=== PATIENT | female | born 1935 | race Caucasian/White ===

== ENCOUNTER 2020-12-10 17:48 | Inpatient (IN) | payer MEDICARE, OTHER ==
[~2020-12-10] VITALS: Ht 144.8 cm; Wt 48.5 kg
[2020-12-10 18:23] LABS: MEAN CORPUSCULAR HEMOGLOBIN 30.9 uug (24.7-32.8); MEAN CORPUSCULAR VOLUME 89.8 fL (75.5-95.3); PLATELET COUNT (AUTO) 338 K/uL (179-408)
[2020-12-10 18:28] LABS: *COLOR,URINE YELLOW (YELLOW); *KETONES,URINE 1+ (NEGATIVE); LEUKOCYTE ESTERASE ,URINE NEGATIVE (NEGATIVE); NITRITE, URINE NEGATIVE (NEGATIVE); UGLUCOSE NEGATIVE (NEGATIVE)
[2020-12-10 18:28] LABS: CARBON DIOXIDE 23 mmol/L (21-32); CHLORIDE 93 mmol/L (98-107); CREATININE 0.9 mg/dL (0.6-1.3); GLUCOSE 122 mg/dL (74-106); POTASSIUM 3.7 mmol/L (3.5-5.1); UREA NITROGEN, BLOOD 18 mg/dL (7-18)
[2020-12-10 18:30] LABS: ETHANOL < 3 MG/DL (0-0)
[2020-12-10 18:32] LABS: *BILIRUBIN,URIN 2+ (NEGATIVE); *BLOOD, URINE TRACE (NEGATIVE)
[2020-12-10 18:34] LABS: ACETAMINOPHEN 10.3 ug/mL (10-30); ALANINE AMINOTRANSFERASE 10 U/L (14-59); ALKALINE PHOSPHATASE 93 U/L (50-136); ASPARTATE AMINOTRANSFERASE 19 U/L (15-37); BILIRUBIN,DIRECT 0.1 mg/dL (0.0-0.2); BILIRUBIN,TOTAL 0.4 mg/dL (0.2-1.0); TOTAL PROTEIN, SERUM 6.8 g/dL (6.4-8.2)
[2020-12-10 18:36] LABS: *CLARITY,URINE SLIGHTLY HAZY (CLEAR); BACTERIA,URINE FEW /HPF (NONE SEEN); RBC,URINE 0-3 /HPF (0-3); SQUAMOUS EPITHELIAL CELL,UR FEW /HPF (NONE SEEN); WBC,URINE 0-3 /HPF (0-3)
[2020-12-10 18:41] LABS: *AMPHETAMINE, URINE NEGATIVE (NEGATIVE); *CANNABINOID, URINE NEGATIVE (NEGATIVE); *COCCAINE, URINE NEGATIVE (NEGATIVE); *OPIATE, URINE NEGATIVE (NEGATIVE); *PHENCYCLIDINE SCREEN,URINE NEGATIVE (NEGATIVE)
[2020-12-10 18:41] LABS: THYROID STIMULATING HORMONE 4.096 mIU/mL (0.358-3.740)
[2020-12-10] MEDS ORDERED: ONDANSETRON ODT 4 MG TAB.RAPDIS ONE (18:59)
[2020-12-10] MEDS ORDERED: OLANZAPINE 10 MG VIAL IM ONE ×4 (19:00→19:52)
[2020-12-10] MEDS ORDERED: ONDANSETRON ODT 4 MG TAB.RAPDIS SL ONE (19:15)
--- NOTE | 2020-12-10 19:35 | NUR ---
Paged Jildy for panel call.
[2020-12-10] MEDS ORDERED: LACT1CAP61 PO (19:43)
[2020-12-10] MEDS ORDERED: CALC200T23 PO (19:43)
[2020-12-10] MEDS ORDERED: CHOL100099 PO (19:43)
[2020-12-10] MEDS ORDERED: [UNRECOGNIZED DRUG - OTHER] PO (19:43)
[2020-12-10] MEDS ORDERED: ACET-2154 PO (19:43)
[2020-12-10] MEDS ORDERED: lidocaine ointment TOP (19:43)
[2020-12-10] MEDS ORDERED: GABA-532 PO (19:43)
[2020-12-10] MEDS ORDERED: OMEG1000 PO (19:43)
[2020-12-10] MEDS ORDERED: DIVA125C2 PO (19:43)
[2020-12-10] MEDS ORDERED: APIX5TAB PO (19:43)
[2020-12-10] MEDS ORDERED: LORA-258 PO (19:43)
[2020-12-10] MEDS ORDERED: METO-295 PO (19:43)
[2020-12-10] MEDS ORDERED: AMLO-212 PO (19:43)
[2020-12-10] MEDS ORDERED: PANT40TA2 PO (19:43)
[2020-12-10] MEDS ORDERED: SERT25TA PO (19:43)
[2020-12-10] MEDS ORDERED: FLUT16SP16 NS (19:43)
[2020-12-10] MEDS ORDERED: ONDA4TAB5 PO (19:43)
[2020-12-10] MEDS ORDERED: ATEN50TA PO (19:43)
[2020-12-10] MEDS ORDERED: MELA3TAB41 PO (19:43)
--- NOTE | 2020-12-10 19:44 | NUR ---
Pt. admitted to Telemetry, under care of Dr. Flaherty. Dx: Hyponatremia/Leukocytosis Belongs List completed. MRSA swab done.
[2020-12-10] MEDS ORDERED: ACETAMINOPHEN 325 MG TABLET PO PRN ×2 (19:45→20:00)
[2020-12-10] MEDS ORDERED: LABETALOL HCL 100 MG/20 ML VIAL IV PRN (19:45)
[2020-12-10] MEDS ORDERED: ONDANSETRON 4 MG/2 ML VIAL IV PRN (19:45)
[2020-12-10] MEDS ORDERED: MAGNESIUM HYDROXIDE 30 ML LIQUID UDC PO PRN (19:45)
[2020-12-10] MEDS ORDERED: hydrALAZINE HCL 20 MG/1 ML VIAL IV PRN (19:45)
[2020-12-10] MEDS ORDERED: CALCIUM CARBONATE 500 MG TAB.CHEW PO PRN (20:00)
[2020-12-10] MEDS ORDERED: HEPARIN SODIUM,PORCINE 5,000 UNITS/ML VIAL SQ SCH (20:00)
[2020-12-10] MEDS ORDERED: ONDANSETRON HCL 4 MG TABLET PO PRN (20:00)
[2020-12-10 20:33] LABS: HEMATOCRIT 44.8 % (31.2-41.9); MEAN CORPUSCULAR HEMOGLOBIN 30.6 uug (24.7-32.8); MEAN CORPUSCULAR VOLUME 89.8 fL (75.5-95.3); PLATELET COUNT (AUTO) 305 K/uL (179-408)
[2020-12-10 20:40] LABS: CARBON DIOXIDE 25 mmol/L (21-32); CHLORIDE 93 mmol/L (98-107); CREATININE 0.8 mg/dL (0.6-1.3); GLUCOSE 134 mg/dL (74-106); POTASSIUM 3.9 mmol/L (3.5-5.1); UREA NITROGEN, BLOOD 18 mg/dL (7-18)
[2020-12-10] MEDS: IV NS 1000 ML 1,000 ML IV SCH (21:17)
--- NOTE | 2020-12-10 22:30 | NUR ---
ADMITTED IN TELE FLOOR UNDER THE CARE OF DR. AGUILAR. PATIENT ALERT X2 ONLY, NO SOB NO CHEST PAIN, TELE MONITOR SINUS RHYTHM, SINUS TACHY 105. PATIENT ON OXYGEN 2LPM SAT 96-97%, WITH BILATERAL UNDEREATH BREAST REDNESS, LEG AND THIGH BRUISES AND SWELLING OF LEFT LEG. PATIENT NOTED WITH 2 LOOSE BM WITH SOME PECULIAR ODOR WITH COLLECT FOR C DIFF TESTING. PATIENT HAS EPISODE OF YELLING AND SCREAMING AND NEEDY BEHAVIOR ATTEND ALL NEEDS, CONT TO MONITOR.
[2020-12-10] MEDS: MELATONIN 3 MG TABLET PO SCH (22:52)
[2020-12-10] MEDS: METOCLOPRAMIDE HCL 10 MG TABLET PO SCH (22:55)
--- NOTE | 2020-12-11 00:28 | NUR ---
Notify Dr Adler patient constantly yelling and screaming, for no apparent reason. with order Haldol 5m IM once.
[2020-12-11] MEDS ORDERED: HALOPERIDOL DECANOATE 50 MG/1 ML AMPUL IM ONE (00:30)
[2020-12-11 00:44] VITALS: BP 129/80
--- NOTE | 2020-12-11 00:45 | NUR ---
Dr Mcnamara was paged and returned the page, notify Dr Mcnamara was notify that patient yelling and screaming for no apparent, with order of ativan 1mg iv every 8 hrs prn for agitation.
[2020-12-11] MEDS: LORAZEPAM 2 MG/1 ML VIAL IV PRN ×2 (01:10→15:00)
[2020-12-11] MEDS: Z GUARD REMEDY PASTE 57 GM TUBE TOP SCH ×3 (03:19→20:31)
[2020-12-11 05:18] VITALS: BP 110/75
[2020-12-11] MEDS: PANTOPRAZOLE SODIUM 40 MG TABLET.DR PO SCH (06:14)
--- NOTE | 2020-12-11 06:16 | NUR ---
PATIENT ASLEEP BUT AROUSABLE, PATIENT HAS LITTLE SLEEP LAST NIGHT, FIGHTING HER SLEEP. PATIENT HAS NO SOB NO CHEST PAIN, TELE MONITOR SINUS RHYTHM, HR 83, SAT 93-95% AT 2LPM NC. TX DONE ON BOTH UNDER BREAST REDNESS, PATIENT HAS LEFT GREAT TOE HAMMER TOE. CONT TO MONITOR.
[2020-12-11 06:59] LABS: HEMATOCRIT 41.8 % (31.2-41.9); MEAN CORPUSCULAR HEMOGLOBIN 30.9 uug (24.7-32.8); MEAN CORPUSCULAR VOLUME 93.8 fL (75.5-95.3); PLATELET COUNT (AUTO) 265 K/uL (179-408)
[2020-12-11 07:01] LABS: BILIRUBIN,TOTAL 0.5 mg/dL (0.2-1.0); PHOSPHOROUS 3.4 mg/dL (2.5-4.9); TOTAL PROTEIN, SERUM 6.1 g/dL (6.4-8.2)
[2020-12-11 07:06] LABS: CREATININE 0.7 mg/dL (0.6-1.3); POTASSIUM 3.6 mmol/L (3.5-5.1)
--- NOTE | 2020-12-11 07:30 | NUR ---
Received awake in bed yelling and screaming. on 2lpm nc but patient had removed it and put it over her head. No resp distress noted. Put oxygen back on. Patient appears agitated and moving around in bed. Iv hydration ongoing. Safety measures in place. Reoriented patient but patient is argumentative. Repositioned prn. Kept comfortable. Will contiue to monitor.
[2020-12-11] MEDS: LORAZEPAM 0.5 MG TABLET PO SCH ×2 (09:24→20:30)
[2020-12-11] MEDS: METOCLOPRAMIDE HCL 10 MG TABLET PO SCH ×4 (09:26→20:30)
[2020-12-11] MEDS: DIVALPROEX SPRINKLE 125 MG CAP.SPRINK PO SCH ×2 (09:27→20:30)
[2020-12-11] MEDS: GABAPENTIN 100 MG CAPSULE PO SCH ×2 (09:27→20:29)
[2020-12-11] MEDS: ATENOLOL 50 MG TABLET PO SCH (09:28)
[2020-12-11] MEDS: AMLODIPINE 5 MG TABLET PO SCH (09:29)
[2020-12-11] MEDS: SERTRALINE HCL 50 MG TABLET PO SCH (09:29)
[2020-12-11] MEDS ORDERED: APIXABAN 2.5 MG TABLET PO SCH (09:30)
--- NOTE | 2020-12-11 09:50 | NUR ---
Spoke with patient's dtr and given update.
[2020-12-11] MEDS: FLUTICASONE PROP NASAL SPRAY 16 GM BOTTLE NS SCH (10:43)
[2020-12-11] MEDS: IV NS 1000 ML 1,000 ML IV SCH ×2 (10:43→15:29)
[2020-12-11 11:00] VITALS: BP 116/68
--- NOTE | 2020-12-11 11:00 | NUR ---
Patient very agitated moving around and trying to get out of bed. Reoriented patient but unsuccessful at times. Patient removes cannula and puts above her head, screaming at times.
[2020-12-11 16:00] VITALS: BP 109/59
--- NOTE | 2020-12-11 16:34 | NUR ---
Patient with episodes of hallucination. Frequent reorientation provided.
--- NOTE | 2020-12-11 18:50 | NUR ---
Patient resting in bed hob elevated. On oxygen 2lpm nc. No sob noted. Due meds given and tolerated. No nausea or vomiting. Patient was agitated most of the time throughout the shift. Needs frequent reorientation. Changed and repositioned prn. Kept comfortable. Safety measures in place. Bed low and locked.
[2020-12-11 20:00] VITALS: BP 108/59
[2020-12-11] MEDS: MELATONIN 3 MG TABLET PO SCH (20:29)
[2020-12-11] MEDS: APIXABAN 2.5 MG TABLET PO SCH (20:30)
[2020-12-12] VITALS: BP_SYST 112; BP_SYST 115; BP_DIAS 62; BP_DIAS 63
[2020-12-12 04:00] VITALS: BP 107/55
[2020-12-12] MEDS: PANTOPRAZOLE SODIUM 40 MG TABLET.DR PO SCH (05:51)
--- NOTE | 2020-12-12 06:08 | NUR ---
Shift End Report: Vs stable. Alert, confused and disoriented to place, time and situation. restless and agitated at times that pulled her IV once. Re-inserted a new one on RFA G# 22 x 2X attempts, Tolerated well. No s/s of respiratory distress with continuos O2 at 2L/min via NC, saturating 94-95%. Kept HOB elevated. All needs attended and met. Slept good. Continue care as planned.
--- NOTE | 2020-12-12 07:15 | NUR ---
RECEIVED PATIENT IN BED SLEEPING IN STABLE CONDITION. PATIENT ON 2L NASAL CANULA. IV PATENT AND INTACT RUNNING NS AT 50ML/HR. SAFETY PRECAUTIONS IN PLACE. CALL LIGHT WITHIN REACH. WILL CONTINUE TO MONITOR.
[2020-12-12] MEDS: SERTRALINE HCL 50 MG TABLET PO SCH (09:44)
[2020-12-12] MEDS: ATENOLOL 50 MG TABLET PO SCH (09:44)
[2020-12-12] MEDS: AMLODIPINE 5 MG TABLET PO SCH (09:44)
[2020-12-12] MEDS: METOCLOPRAMIDE HCL 10 MG TABLET PO SCH ×4 (09:44→20:21)
[2020-12-12] MEDS: GABAPENTIN 100 MG CAPSULE PO SCH ×2 (09:45→20:21)
[2020-12-12] MEDS: DIVALPROEX SPRINKLE 125 MG CAP.SPRINK PO SCH ×2 (09:45→20:21)
[2020-12-12] MEDS: LORAZEPAM 0.5 MG TABLET PO SCH ×2 (09:45→20:21)
[2020-12-12] MEDS: APIXABAN 2.5 MG TABLET PO SCH ×2 (09:46→20:32)
[2020-12-12] MEDS: Z GUARD REMEDY PASTE 57 GM TUBE TOP SCH ×2 (09:56→20:21)
[2020-12-12] MEDS: FLUTICASONE PROP NASAL SPRAY 16 GM BOTTLE NS SCH (09:56)
[2020-12-12 11:24] VITALS: BP 140/70
[2020-12-12] MEDS: IV NS 1000 ML 1,000 ML IV SCH (13:38)
[2020-12-12] MEDS: HYDROCODONE/APAP 5-325MG TABLET PO PRN (14:25)
[2020-12-12 15:31] VITALS: BP 112/56
--- NOTE | 2020-12-12 17:00 | NUR ---
PT DAUGHTER CALLED, HOLLY, CONCERNED THAT "HER MOM HAS LOST HER TASTE AND THINKS IT CAN HELP MD FIGURE OUT WHAT IS WRONG." DAUGHTER NUMBER IS [phone], HOSPITALIST MADE AWARE. Addendum: 12/12/20 at 1948 by MICHELE MURILLO RN WRONG PT
--- NOTE | 2020-12-12 17:55 | NUR ---
PATIENT IN BED AWAKE IN STABLE CONDITION, HOB ELEVATED. ON 2L NASAL CANULA SATURATION AT 92%. IV PATENT AND INTACT RUNNING NS AT 50ML/HR. CALL LIGHT WITHIN REACH WILL REPORT TO ONCOMING SHIFT.
[2020-12-12] MEDS: MELATONIN 3 MG TABLET PO SCH (20:21)
[2020-12-12 20:38] VITALS: BP 112/62
[2020-12-13] MEDS: HYDROCODONE/APAP 5-325MG TABLET PO PRN (03:31)
[2020-12-13 04:00] VITALS: BP 148/76
[2020-12-13] MEDS: PANTOPRAZOLE SODIUM 40 MG TABLET.DR PO SCH (06:41)
--- NOTE | 2020-12-13 07:04 | NUR ---
Pt slept throughout the night. Denies SOB at this time. Tried to titrate to RA, pt sats at 90%. Kept on 1L, tolerating well. Safety and comfort provided. No other issues or concerns at this time. Will endorse to day shift.
--- NOTE | 2020-12-13 07:30 | NUR ---
Patient received in bed, alert and oriented x1-2 and confused, requires frequent reorientation. Patient received on 1L O2 via NC with saturation at 95%. Left wrist IV patent with no redness or swelling noted at this time. No complaints of pain or discomforts at this time. No acute distress noted. Call light within easy reach. Will continue to monitor.
[2020-12-13] MEDS: SERTRALINE HCL 50 MG TABLET PO SCH (08:43)
[2020-12-13] MEDS: ATENOLOL 50 MG TABLET PO SCH (08:43)
[2020-12-13] MEDS: AMLODIPINE 5 MG TABLET PO SCH (08:43)
[2020-12-13] MEDS: LORAZEPAM 0.5 MG TABLET PO SCH (08:43)
[2020-12-13] MEDS: DIVALPROEX SPRINKLE 125 MG CAP.SPRINK PO SCH (08:43)
[2020-12-13] MEDS: GABAPENTIN 100 MG CAPSULE PO SCH (08:43)
[2020-12-13] MEDS: APIXABAN 2.5 MG TABLET PO SCH (08:44)
[2020-12-13] MEDS: FLUTICASONE PROP NASAL SPRAY 16 GM BOTTLE NS SCH (08:45)
[2020-12-13] MEDS: METOCLOPRAMIDE HCL 10 MG TABLET PO SCH (08:45)
[2020-12-13] MEDS: Z GUARD REMEDY PASTE 57 GM TUBE TOP SCH (08:45)
[2020-12-13 12:00] VITALS: BP 140/58
--- NOTE | 2020-12-13 13:42 | NUR ---
Ambulance here for transfer of patient back to [facility]. Report given to TRUPTI Walker and aware of transfer time. Patient discharged in satisfactory condition with all her personal belongings.
== END 2020-12-13 13:57 | DRG 641 ==
LOC: ER 17:50 → TELE3 22:09 → MEDSURG3 12-12 11:36
PROVIDERS: ADMIT Internal Medicine; ATTEND Internal Medicine
DX: E87.1 Hypo-osmolality and hyponatremia (principal); E86.1 Hypovolemia; Z20.822 Contact with and (suspected) exposure to COVID-19; E86.0 Dehydration; F32.9 Major depressive disorder, single episode, unspecified; I48.91 Unspecified atrial fibrillation; Z79.01 Long term (current) use of anticoagulants; Z88.0 Allergy status to penicillin; Z88.2 Allergy status to sulfonamides; F29 Unspecified psychosis not due to a substance or known physiological condition; I10 Essential (primary) hypertension
CPT/HCPCS: 36415; 71045; 84100; 84443; 85025; 93005; A4663; G0378; G0480; J2060; J2358; J3535; J7030; J8597; Q0162